=== PATIENT | female | born 1945 | race Caucasian/White ===

== ENCOUNTER 2019-04-18 16:07 | Emergency (ER) | payer MEDICARE, OTHER, SELFPAY ==
[2019-04-18 16:08] VITALS: BP 160/83; PULSE 81; RESP 18; TEMP 36.6; O2SAT 96; BMI 31.6
--- NOTE | 2019-04-18 17:16 | ED.DCSUM_ITS ---
History of Present Illness Chief Complaint: Lower Extremity Injury Informant: Patient Onset: Today Context: Sudden Onset Timing: Continuous Current Severity: Mild Maximum Severity: Moderate Narrative: Patient is a 73-year-old female presenting with sudden onset of left-sided hip pain. Patient states she went for her normal walk this morning and after she was sitting down she went to stand up again and started having left hip pain. This occurred while she was at work. She states it radiates down her leg slightly. Pain is worse with movement or walking. Pain resolves with staying still. Patient denies any bladder or bowel incontinence. She denies any perineal numbness. She denies any history of IV drug use. She notes she does have a history of breast cancer stage 0 treated with resection but denies any other history of cancer. She denies any fever or chills. She is taken Tylenol with no significant relief. She denies any other complaints at this time. Patient states she came in because she is planning on flying to [place] tomorrow to visit her sister and wanted to make sure there is nothing really wrong with her. Past Medical History - Allergies and Home Meds Allergies/Adverse Reactions: Allergies No Known Allergies Allergy (Verified 04/18/19 16:11) Primary Care Physician: Justyn Penny MD [Primary Care Provider] - Prior records reviewed: Yes Past Medical History: - - Hypertension Smoking Status: Never smoker Review of Systems Musculoskeletal: Reports: Extremity Pain - lEft hip. Denies: Back pain Physical Exam Vital Signs/Narrative: Vital Signs Temp Pulse Resp BP Pulse Ox 04/18/19 16:08 97.8 F 81 18 160/83 H 96 Inital Vital Signs reviewed: Yes General: Well nourished, Well developed, No Acute Distress Head: Normocephalic, Atraumatic Eyes: Perrl, EOMI ENT: Moist mucous membranes, No rhinorrhea Neck: Supple, Nontender Cardiovascular: Regular rate, Regular rhythm, No murmurs, - - 2+ DP pulses bilaterally Respiratory: No distress, CTA bilaterally, Chest nontender Abdomen: Soft, Nontender, Nondistended, Normal bowel sounds Back: Nontender, Normal Inspection. Negative for: CVA tenderness, Spinal tenderness Extremities: Nontender, No edema, - - Tenderness is over the left hip bursa however is not reproducible on palpation. She has slight pain with hip flexion and movement. Normal logroll of the lower extremities. Normal straight leg test bilaterally Skin: Normal color, No rash Neurological: Alert, Oriented x3, Cranial nerves II-XII grossly intact, Normal Strength, Normal Sensation Psychological: Normal affect, Normal Mood Diagnostic/Tx/Re-eval - Medical Decision Making She is evaluated for atraumatic left hip pain. I suspect his bursitis. Patient states she does walk daily. Patient will be given a dose of Motrin in the emergency room. She is instructed to take ibuprofen as needed for the pain. She will be given a prescription for prednisone burst to take if her symptoms worsen. Patient is agreeable to this plan. She does not have findings consistent with cauda equina syndrome. Normal neurologic exam. Patient is counseled on signs and symptoms requiring return to the emergency room. Patient verbalizes agreement and understand this plan. Patient discharged home in stable and improved condition. ED Disposition - Plan for ED Patient: Disposition: Home or Assisted Living Diagnosis: Hip bursitis, left Instructions: Bursitis Prescriptions: Prednisone 40 mg PO DAILY #10 tab Prescription Printed Referrals: Justyn Penny MD [Primary Care Provider] - Additional Instructions: Take [id number] ibuprofen/Motrin as the bottle instructions. Start taking the prednisone prescription if your symptoms are not improving or worsening. Follow-up with your primary care doctor as needed. Return to the emergency room if you have any worsening or new concerns.
[2019-04-18] MEDS: Ibuprofen 200 MG Tablet 400 MG PO (17:39)
== END 2019-04-18 17:42 | disposition home or self-care (01) ==
PROVIDERS: Emergency Provider Emergency Medicine; Family Provider Internal Medicine; PCP Internal Medicine
DX: M70.72 Other bursitis of hip, left hip (principal); I10 Essential (primary) hypertension; Z85.3 Personal history of malignant neoplasm of breast
CPT/HCPCS: 99283

== ENCOUNTER 2025-01-14 08:39 | Observation (INO) | payer MEDICARE, OTHER, SELFPAY ==
[2025-01-14] VITALS (8 sets, daily range): BP systolic 140–179; BP diastolic 64–93; PULSE 69–89; RESP 14–18; TEMP 36.7–37.2; O2SAT 95–100; BMI 33.3; BMI 34.0
--- NOTE | 2025-01-14 09:00 | EKG12_ITS ---
Test Reason : CHEST PAIN Blood Pressure : */* mmHG Vent. Rate : 75 BPM Atrial Rate : 75 BPM P-R Int : 134 ms QRS Dur : 94 ms QT Int : 380 ms P-R-T Axes : 82 -7 52 degrees QTcB Int : 424 ms Normal sinus rhythm Normal ECG Confirmed by SERA BRITO, LIZZY ([id number]), commercial production editor SHAKEEL KRISHNA ([id number]) on 01/15/2025 11:05:05 AM Referred By: Confirmed By: LIZZY ZAMORA MD
--- NOTE | 2025-01-14 09:01 | EDS_ITS ---
HPI History of Present Illness Chief Complaint: Neuro S/Sx Detail of Chief Complaint: Disequilibrium Informant: patient Narrative Narrative: Patient presents the emergency department complaining of feeling off balance that started yesterday morning when she woke up at 7 AM. She felt off balance like she was bouncing off nuñez and having to hold onto things. She denies vertigo symptoms or dizziness. She denies headache. She denies chest pain. Patient denies numbness or tingling or weakness to the extremities. She denies slurred speech or difficulty with vision. She has had intermittent episodes since yesterday. Today with some nausea and had 3 watery stools. She denies fevers or chills or sweats. She denies dysuria. She denies chest pain. She does have history of A-fib that was corrected with a mini maze procedure years ago. [facility] Medical History (Updated 01/14/25 @ 11:[address] Celina Rae, DO) History of atrial fibrillation Incontinence Hypertension Home Medications ?Medication ?Instructions ?Recorded ?Last Taken ?Type calcium 600 mg (as 1 ea PO DAILY 02/04/15 Unkno wn History carbonate)-vitamin D3 20 mcg (800 unit) tablet ngaecxcu-btbl-uvsb 8 mg-folic 400 1 ea PO DAILY Unknown History mcg-K 50 mcg-lutein 300 mcg tablet (Centrum Silver Women) diltiazem HCl 240 mg 240 mg PO DAILY 01/14/25 Unk nown History capsule,extended release 24 hr lisinopril 20 mg tablet 20 mg PO DAILY 01/14/25 Unkn own History pravastatin 20 mg tablet 20 mg PO QHS 01/14/25 Unknow n History Allergy/AdvReac Type Severity Reaction Status Date / Time No Known Allergies Allergy Verified 01/14/25 08:42 Family History Other COPD (chronic obstructive pulmonary disease) Hypertension Surgical History (Updated 01/14/25 @ 08:50 by Zainab Carias) Hx of hysterectomy Hx of breast biopsy Hx of cholecystectomy Hx of tonsillectomy Hx of splenectomy Hx of heart surgery Social History Smoking Status: Never smoker ROS ROS ED Review of Systems ROS Unobtainable: other Constitutional Constitutional ED: Reports lethargy; Denies chills, fever(s), sweats or weight loss Eyes Eyes: Denies blurry vision, change in vision or diplopia ENT ENT ED: Denies rhinorrhea or sore throat Cardiovascular Cardiovascular: Denies chest pain, orthopnea or racing heartbeat Respiratory/Chest Respiratory/Chest: Denies cough, dyspnea, dyspnea on exertion, orthopnea or sputum Gastrointestinal Gastrointestinal: Reports diarrhea and nausea; Denies abdominal pain or vomiting Genitourinary Genitourinary ED: Denies dysuria, hematuria or urinary frequency Musculoskeletal Musculoskeletal: Denies arthralgias, back pain, myalgias or neck pain Integumentary Denies abscess, Abrasions or rash Neurologic Neurologic: Reports other Details: Difficulty with balance ; Denies headache(s) or weakness Psychiatric Psychiatric: Denies anxiety, depression or suicidal thoughts Endocrine Endocrinology: Denies polydipsia, polyphagia or polyuria Hematologic/Lymphatic Hematologic/Lymphatic: Denies easy bleeding, easy bruising or lymphadenopathy Allergic/Immunologic Allergic/Immunologic ED: Denies mouth swelling, tongue swelling or urticaria EXAM Physical Exam Const Vital Signs: 01/14/25 08:40 01/14/25 10:22 01/14/25 10:55 Temperature 98.1 F Temperature Source Oral Pulse Rate 89 80 Pulse Rate [Lying] 80 Pulse Rate [Sitting (for 1 minute prior to obtaining)] 81 Pulse Rate [Standing (for 1 minute prior to obtaining)] 84 Respiratory Rate 18 14 Blood Pressure 166/77 H 163/75 H Blood Pressure [Lying] 163/75 H Blood Pressure [Sitting (for 1 minute prior to obtaining)] 174/84 H Blood Pressure [Standing (for 1 minute prior to obtaining)] 179/93 H Blood Pressure Mean 106 104 Blood Pressure Mean [Lying] 104 Blood Pressure Mean [Sitting (for 1 minute prior to obtaining)] 114 Blood Pressure Mean [Standing (for 1 minute prior to obtaining)] 121 Pulse Ox 100 98 Oxygen Delivery Method Room Air Room Air Positive well nourished and well developed General Appearance ED: well developed and NAD HEENT Reports TM's clear and moist mucous membranes normocephalic and atraumatic; Negative for trauma or tenderness Tympanic Membrane ED: Yes TM's clear Eyes PERRL and EOMs intact bilaterally General Eye ED: Negative for pale conjunctiva or scleral icterus Neck no lymphadenopathy, supple and no JVD General: Negative for tenderness Chest Wall inspection of chest normal and palpation of chest normal Chest: Negative for tenderness Resp normal respiratory effort and clear to auscultation bilaterally Effort and Inspection: Negative for respiratory distress or pain with movement Auscultation: Negative for rhonchi, wheezes or diminished lung sounds Cardio regular rate, regular rhythm, S1 normal heart sound, S2 normal heart sound and no murmurs Peripheral Pulses: pulses 2+ throughout GI normal to inspection, nondistended, normoactive bowel sounds, soft to palpation, non-tender, non-distended and no masses Back/Spine no CVA tenderness and no thoracic nor lumbar tenderness Extremity normal to inspection General Extremety ED: Negative for edema General Extremity: Negative for edema Neuro oriented x3, CN's II-XII intact bilaterally, no sensory deficits noted and gait normal Neuro Narrative: NIH stroke scale 0. No focal deficits. No facial droop. Finger-nose and heel nelson testing within normal limits. Negative Romberg. Sensorium / Orientation: awake, alert, oriented to person, oriented to place and oriented to time Motor Exam: strength 5/5 throughout and strength abnormal Psych mental status grossly normal Skin no rashes or lesions noted and no wounds MDM MDM MDM Narrative Medical decision making narrative: Patient presents with difficulty with balance. Exam here without focal deficit. Concern for possibility of posterior circulation stroke. EKG obtained arrival shows sinus rhythm with rate of 75 bpm with no acute ST segment changes. CBC with differential count of 8.1 with hemoglobin 14.7 and platelet count of 364. Chemistries unremarkable. Troponin less than 6. Urinalysis was normal. Orthostatic vital signs were negative. CT scan of the brain as well as CTA of head and neck were unremarkable. At this point will discuss case with hospitalist evaluate for admission for rule out of stroke with posterior c irculations and feel she will require MRI to evaluate further. She is not a thrombolytic candidate. Lab Data Attestation: I reviewed the patient's lab results. Labs: Laboratory Results - last 24 hr 01/14/25 01/14/25 09:40 10:10 WBC 8.1 RBC 4.83 Hgb 14.7 Hct 44.1 MCV 91.3 MCH 30.4 MCHC 33.3 RDW Std Deviation 48.6 H RDW Coeff of Leda 14.4 Plt Count 364 MPV 10.5 Immature Gran % (Auto) 0.100 Neut % (Auto) 76.1 H Lymph % (Auto) 16.4 L [place] % (Auto) 6.7 Eos % (Auto) 0.1 Baso % (Auto) 0.6 Absolute Neuts (auto) 6.2 Absolute Lymphs (auto) 1.33 Nucleated RBC % 0 Sodium 142 Potassium 3.8 Chloride 106 Carbon Dioxide 24.6 Anion Gap 11 BUN 15 Creatinine 0.92 Estim Creat Clear Calc 56.14 Est GFR (MDRD) Non-Af 64 BUN/Creatinine Ratio 16.3 Glucose 112 H Calcium 10.0 Troponin T High Sens < 6 Urine Color Yellow Urine Clarity Sl. Cloudy Urine pH 6.5 Ur Specific [place] 1.015 Urine Protein 15 H Urine Glucose (UA) Normal Urine Ketones Negative Urine Occult Blood 25 H Urine Nitrite Negative Urine Bilirubin Negative Urine Urobilinogen Normal Ur Leukocyte Esterase 25 H Urine RBC 0-5 SEEN Urine WBC 0-5 SEEN Ur Squamous Epith Cells 0-5 SEEN Urine Bacteria 0 SEEN Urine Mucus 0 SEEN Radiography Diagnostic Testing: Clinical Impression(s) from Imaging Studies Head/Neck CTA 01/14/25 10:09 IMPRESSION: CTA of the head and neck is within normal limits. [facility] Initial EKG: Attestation: I personally reviewed and interpreted this EKG as follows: Comments: Sinus rhythm with rate 75 bpm with no acute ST segment change Discharge Plan Dx/Rx/DC Orders Clinical Impression: Disequilibrium, Hypertension, History of atrial fibrillation Disposition Disposition: Acute Care Hospital [facility]
[2025-01-14 09:58] LABS: Absolute Lymphocyte Count 1.33 X10^3/uL (0.83-4.51); Absolute Neutrophil Count 6.2 X10^3/uL (2.0-7.7); Basophil# 0.05 X10^3/uL; Basophil% 0.6 % (0-1); Eosinophil# 0.01 X10^3/uL; Eosinophils% 0.1 % (0-5); Hematocrit 44.1 % (37-47); Hemoglobin 14.7 g/dL (12.0-15.0); Lymphocyte # 1.33 X10^3/ul (0.83-4.51); Lymphocyte % 16.4 % (19-41); Mean Corp Hgb Conc 33.3 g/dL (32-36); Mean Corpuscular Hgb 30.4 pg (27.0-32.0); Mean Corpuscular Volume 91.3 fL (81-99); Mean Platelet Vol. 10.5 fl (6.2-12.0); Monocyte# 0.54 X10^3/uL; Monocyte% 6.7 % (0-10); NRBC Flagged by Analyzer 0 % (0-5); Neutrophil # 6.18 X10^3/uL (2.7-7.7); Neutrophil % 76.1 % (47-70); Platelet Count 364 K/mm3 (150-450); RBC Distribution Width CV 14.4 % (11.6-14.6); RBC Distribution Width SD 48.6 fl (35.1-43.9); Red Blood Count 4.83 M/mm3 (4.2-5.4); White Blood Count 8.1 K/mm3 (4.4-11.0)
--- NOTE | 2025-01-14 10:09 | CT_ITS ---
PROCEDURE: CTA HEAD AND NECK W/ CONTRAST 01/14/2025 REASON FOR EXAM: DISEQUILIBRIUM TECHNIQUE: CTA HEAD AND NECK W/ CONTRAST Multiplanar Sagittal and Coronal images were obtained. CONTRAST: 100 cc Isovue 370 One or more dose reduction techniques were used (e.g., Automated exposure control, adjustment of the mA and/or kV according to patient size, use of iterative reconstruction technique). RADIATION DOSE SUMMARY: DLP: 1492.09 mGycm COMPARISON: None FINDINGS: Aortic Arch: Intact Brachiocephalic and Subclavians: Patent RIGHT Carotid: Right CCA: Patent Right ICA: Patent Maximum stenosis (NASCET): 0 % Right ECA: Patent LEFT Carotid: Left CCA: Patent Left ICA: Patent Maximum stenosis (NASCET): 0 % Left ECA: Patent Vertebrals: Patent RIGHT Vertebral: Patent LEFT Vertebral: Patent Anatomy: Intact Aneurysm or avm: None Anterior cerebral arteries: Patent Middle cerebral arteries: Patent Basilar artery: Patent Posterior cerebral arteries: Patent Other major branches of the posterior circulation: Patent Major venous structures: Patent Other findings: Neck: Unremarkable lungs: Clear bones: There is no acute bony abnormality. The thyroid appears heterogeneous with small bilateral cysts visible. CT/CTA Head AND Neck W/ Contrast IMPRESSION: CTA of the head and neck is within normal limits. Reading Location: [facility]
[2025-01-14 10:19] LABS: Anion Gap 11 (5-15); BUN 15 mg/dL (4-19); BUN/Creat Ratio 16.3 RATIO (10-20); Carbon Dioxide 24.6 mmol/L (21.0-32.0); Chloride 106 mmol/L (98-108); Creatinine, Serum 0.92 mg/dL (0.70-1.20); EST Glomerular Filtration Rate 64 (>60); Estimated Creatinine Clearance 56.14 ml/min (50-250); Glucose 112 mg/dL (70-99); Potassium 3.8 mmol/L (3.3-5.1); Sodium Level 142 mmol/L (133-145)
[2025-01-14 10:22] LABS: Troponin T High Sensitivity < 6 ng/L (<=14)
[2025-01-14] MEDS: 0.9% Normal Saline (1000mL) 1,000 ML 150 ML IV (10:22)
[2025-01-14 10:24] LABS: Bacteria 0 SEEN /hpf (None Seen); Mucous, Urine 0 SEEN /hpf (<or=2+)
[2025-01-14 10:27] LABS: Color, Urine Yellow (Yellow); Glucose, Dipstick Normal (Normal); Ketone-Dipstick Negative (Negative); Leukocyte Esterase-Dipstick 25 /ul (Negative); Nitrite-Dipstick Negative (Negative); Occult Blood-Urine 25 /ul (Negative); Protein-Dipstick 15 mg/dl (Negative); Specific Gravity, Urine 1.015 (1.002-1.030); Urine Bilirubin Dipstick Negative (Negative); Urine Clarity Sl. Cloudy (Clear); Urine Urobilinogen Normal (Normal); Urine pH 6.5 (5.0 - 8.0)
[2025-01-14 10:48] LABS: Squamous Epithelial Cells - UA 0-5 SEEN /hpf (5-10)
[2025-01-14 10:49] LABS: Red Blood Cells-Urine 0-5 SEEN /hpf (0-5); White Blood Cells 0-5 SEEN /hpf (0-5)
--- NOTE | 2025-01-14 11:18 | PCM.HP.STD ---
HPI - General General Date of Admission: 01/14/25 Date of Service: 01/14/25 Chief Complaint: Strokelike symptoms HPI Narrative JONA SMITH, is a 79 F who presented to [facility] ED on 01/14/2025 with strokelike symptoms. Medical history is significant for A-fib corrected with a mini maze procedure with left atrial appendage clipping back in 2006, hypertension and hyperlipidemia. She lives at home with her and has good functional status at baseline. She states that she began feeling off balance starting yesterday morning when she woke up. She was having to hold onto things to ambulate. However, she denies any dizziness or vertigo symptoms. Denies any chest pain or shortness of breath. Denies any slurred speech, difficulty with vision or any weakness or numbness/tingling in her extremities. The symptoms continued today so she came in for further evaluation. In the ED she was hypertensive to the 160s systolic, was otherwise hemodynamically stable on room air. CBC and BMP were benign. Troponins negative x 2. UA unremarkable. CTA head/neck was normal. Given concern for posterior stroke, hospitalist was contacted for admission. I saw the patient at bedside in the ED, was present. Patient was sitting back comfortably in bed, conversing normally, in no acute distress. She denied any symptoms at rest. Notes that she has never had symptoms like this before. No other acute concerns currently. Will be admitted for further management. [facility] Medical History (Updated 01/14/25 @ 11:[address] Celina Rae, DO) History of atrial fibrillation Incontinence Hypertension Home Medications ?Medication ?Instructions ?Recorded ?Last Taken ?Type calcium 600 mg (as 1 ea PO DAILY 02/04/15 01/14/25 History carbonate)-vitamin D3 20 mcg (800 unit) tablet yoekcioc-qura-mela 8 mg-folic 400 1 ea PO DAILY 02/04/15 01/14/25 History mcg-K 50 mcg-lutein 300 mcg tablet (Centrum Silver Women) diltiazem HCl 240 mg 240 mg PO DAILY 01/14/25 01/14/25 History capsule,extended release 24 hr lisinopril 20 mg tablet 20 mg PO DAILY 01/14/25 01/14/25 History pravastatin 20 mg tablet 20 mg PO QHS 01/14/25 01/13/25 History Allergy/AdvReac Type Severity Reaction Status Date / Time No Known Allergies Allergy Verified 01/14/25 08:42 Family History Other COPD (chronic obstructive pulmonary disease) Hypertension Surgical History (Updated 01/14/25 @ 08:50 by Zainab Carias) Hx of hysterectomy Hx of breast biopsy Hx of cholecystectomy Hx of tonsillectomy Hx of splenectomy Hx of heart surgery Social History Smoking Status: Never smoker ROS Constitutional Constitutional: Denies chills, fatigue, fever(s) or weakness Eyes Eyes: Denies blurry vision, change in vision or double vision Cardiovascular Cardiovascular: Denies chest pain, edema, lightheadedness or palpitations Respiratory/Chest Respiratory/Chest: Denies shortness of breath at rest Gastrointestinal Gastrointestinal: Denies abdominal pain, constipation or diarrhea Genitourinary Genitourinary: Denies dysuria Musculoskeletal Musculoskeletal: Denies arthralgias or myalgias Neurologic Neurologic: Reports abnormal gait and disequilibrium; Denies abnormal speech, confusion, dizziness, focal weakness, headache(s), numbness, paresthesias, tingling or tremor(s) Vital Signs Vital Signs Vital Signs: 01/14/25 08:40 01/14/25 10:22 01/14/25 10:55 Temperature 98.1 F Temperature Source Oral Pulse Rate 89 80 Pulse Rate [Lying] 80 Pulse Rate [Sitting (for 1 minute prior to obtaining)] 81 Pulse Rate [Standing (for 1 minute prior to obtaining)] 84 Respiratory Rate 18 14 Blood Pressure 166/77 H 163/75 H Blood Pressure [Lying] 163/75 H Blood Pressure [Sitting (for 1 minute prior to obtaining)] 174/84 H Blood Pressure [Standing (for 1 minute prior to obtaining)] 179/93 H Blood Pressure Mean 106 104 Blood Pressure Mean [Lying] 104 Blood Pressure Mean [Sitting (for 1 minute prior to obtaining)] 114 Blood Pressure Mean [Standing (for 1 minute prior to obtaining)] 121 Pulse Ox 100 98 Oxygen Delivery Method Room Air Room Air Weight Weight: 90.9 kg Body Mass Index (BMI) 33.3 Physical Exam Const alert, oriented x3 and no apparent distress Constitutional Narrative: Elderly female, class I obesity, mildly fatigued appearing but otherwise sitting back comfortably in bed, conversing normally, in no acute distress. General Appearance: cooperative and comfortable HEENT normocephalic, head/scalp atraumatic, hearing grossly normal bilaterally, nasal mucous membranes and turbinates normal and moist oral mucous membranes Eyes PERRL, EOMs intact bilaterally and conjunctivae normal Neck full ROM Chest inspection of chest normal Resp normal respiratory effort, normal air movement, no use of accessory muscles and clear to auscultation bilaterally Cardio regular rate, regular rhythm, no murmurs and peripheral pulses 2+ throughout GI normal to inspection, nondistended, normoactive bowel sounds, soft to palpation, non-tender and non-distended Back/Spine normal ROM Extremity normal to inspection, full ROM and no pedal edema Skin no rashes or lesions noted Neuro oriented x3, CN's II-XII intact bilaterally, moves all extremities and no focal motor deficits Coordination / Balance: [id number]-no-[id number] test normal and [id number]-updl test normal Speech: speech normal Motor Exam: strength 5/5 throughout Psych mental status grossly normal Results Lab / Micro Data 01/14/25 09:40 01/14/25 09:40 Labs: Laboratory Results - last 24 hr 01/14/25 09:40: WBC 8.1, RBC 4.83, Hgb 14.7, Hct 44.1, MCV 91.3, MCH 30.4, MCHC 33.3, RDW Std Deviation 48.6 H, RDW Coeff of Leda 14.4, Plt Count 364, MPV 10.5, Immature Gran % (Auto) 0.100, Neut % (Auto) 76.1 H, Lymph % (Auto) 16.4 L, [place] % (Auto) 6.7, Eos % (Auto) 0.1, Baso % (Auto) 0.6, Absolute Neuts (auto) 6.2, Absolute Lymphs (auto) 1.33, Nucleated RBC % 0, Sodium 142, Potassium 3.8, Chloride 106, Carbon Dioxide 24.6, Anion Gap 11, BUN 15, Creatinine 0.92, Estim Creat Clear Calc 56.14, Est GFR (MDRD) Non-Af 64, BUN/Creatinine Ratio 16.3, Glucose 112 H, Calcium 10.0, Troponin T High Sens < 6 01/14/25 10:10: Urine Color Yellow, Urine Clarity Sl. Cloudy, Urine pH 6.5, Ur Specific [place] 1.015, Urine Protein 15 H, Urine Glucose (UA) Normal, Urine Ketones Negative, Urine Occult Blood 25 H, Urine Nitrite Negative, Urine Bilirubin Negative, Urine Urobilinogen Normal, Ur Leukocyte Esterase 25 H, Urine RBC 0-5 SEEN, Urine WBC 0-5 SEEN, Ur Squamous Epith Cells 0-5 SEEN, Urine Bacteria 0 SEEN, Urine Mucus 0 SEEN Imaging Radiology Impression Head/Neck CTA 01/14/25 10:09 IMPRESSION: CTA of the head and neck is within normal limits. Reading [facility] Assessment & Plan Assessment/Plan (1) Disequilibrium: PLAN: Plan Patient is a 79-year-old female who presented to [facility] ED on 01/14/2025 with disequilibrium and difficulty with ambulation. 1. Disequilibrium and difficulty with ambulation ? Admit under observation status to PCU. Neurology consulted. Presented with disequilibrium and difficulty with ambulation for 1 to 2 days. Reports no prior history of this. CTA head/neck unremarkable. Orders placed per stroke protocol order set. MRI brain and echo ordered. Lipid panel, A1c and TSH ordered. PT/OT/case management consulted. Will start baby aspirin and high intensity statin for now. 2. History of A-fib s/p Maze procedure and CHENTE clipping, hypertension, hyperlipidemia ? History of Maze procedure and CHENTE clipping back in 2006. Follows with outpatient cardiology and reports no recurrence of A-fib since then. Holding home diltiazem and lisinopril for permissive hypertension. Treating with high intensity statin as above. 3. Class I obesity ? BMI 34 on admit. Complicates hospital course, care and prognosis. DVT prophylaxis: SCDs CODE STATUS: Full code, verified Expected disposition: Home, 1 to 2 days Total clinical time spent by myself addressing the patient's medical issues, reviewing all the data, and collaborating with patient's care team: 55 minutes. Charges/Coding Visit Charges Inpatient E&M: 48854 Init Hosp L2
--- NOTE | 2025-01-14 11:21 | ECHOD_ITS ---
Reason For Study Reason For Study: TIA/CVA Procedure This was a 2D Doppler, Color Flow transthoracic echocardiogram. Exam performed portable in patient room. Left Ventricle Normal LV size. Left ventricular systolic function is normal. The left ventricular ejection fraction is 60 %. No regional wall motion abnormalities noted. Right Ventricle Normal RV size. Normal systolic function. Atria The left atrium is mildly enlarged. Normal right atrium. Mitral Valve Normal mitral valve. Tricuspid Valve Normal tricuspid valve. Mild (1+) tricuspid valve insufficiency. Pulmonary artery systolic pressure is 35 mmHg. Aortic Valve Trisinus/trileaflet aortic valve. Pulmonic Valve Normal pulmonic valve. Great Vessels Normal aortic root. The pulmonary artery is normal size. Inferior vena cava collapse with respiration. Pericardium/Pleural No pericardial effusion. MMode/2D Measurements & Calculations LVIDd: 4.6 cm IVSd: 1.0 cm Ao root diam: 3.2 cm LVIDs: 3.1 cm LVPWd: 1.0 cm RVDd: 4.0 cm FS: 32.4 % LAV(MOD-bp): 69.6 ml LA A4 area: 23.2 cm2 LA dimension(2D): 5.0 cm LAV(MOD-bp) Indexed: 35.2 ml/m2 LAV(MOD-sp2): 60.5 ml LAV(MOD-sp4): 76.8 ml TAPSE: 1.9 cm RA A4 area: 19.2 cm2 Time Measurements MV dec time: 0.16 sec Doppler Measurements & Calculations MV E max charbel: 90.6 cm/sec Lat Peak E' Charbel: 18.4 cm/sec Med Peak E' Charbel: 9.3 cm/sec MV A max charbel: 61.6 cm/sec E/E' lat: 4.9 E/E' med: 9.8 MV E/A: 1.5 MV V2 max: 104.8 cm/sec MV P1/2t max charbel: 98.4 cm/sec Ao V2 max: 148.8 cm/sec MV max P.4 mmHg MV P1/2t: 50.3 msec Ao max P.9 mmHg MV V2 mean: 56.2 cm/sec MV dec slope: 572.3 cm/sec2 Ao V2 mean: 102.4 cm/sec MV mean P.5 mmHg Ao mean P.8 mmHg MV V2 VTI: 27.7 cm MVA(P1/2t): 4.4 cm2 Ao V2 VTI: 35.5 cm AV (velocity ratio): 0.67 LV V1 max: 94.7 cm/sec PA V2 max: 86.7 cm/sec TR max charbel: 281.8 cm/sec LV V1 max P.6 mmHg TR max P.8 mmHg LV V1 mean P.1 mmHg LV V1 mean: 67.6 cm/sec LV V1 VTI: 23.6 cm ECHO/Echo Complete Interpretation Summary Normal LV size. Left ventricular systolic function is normal. The left ventricular ejection fraction is 60 %. The left atrium is mildly enlarged. Ordering Physician: Nehemias John Performed By: Marcio Adam RCS
[2025-01-14 12:17] LABS: Troponin T High Sens 2 HR < 6 ng/L (<=14)
--- NOTE | 2025-01-14 12:24 | MRI_ITS ---
EXAM: BRAIN WITHOUT CONTRAST CLINICAL HISTORY: CVA R/O COMPARISON: January 14, 2025 CT. TECHNIQUE: Multiplanar, multisequence MR images of the brain were obtained without gadolinium contrast material. FINDINGS: No intracranial hemorrhage, mass, mass effect, midline shift or pathologic extra- axial fluid collection. No hydrocephalus. There is abnormal increased T2 and FLAIR signal in the deep white matter with moderate chronic ischemic change, with the largest lesion in the left periventricular region measuring 1.2 by 0.7 cm, FLAIR image 13/. No areas of restricted diffusion to suggest acute ischemia or infarction. No gradient signal blooming artifacts are identified. No cerebellar tonsillar ectopia. No sellar/suprasellar signal abnormalities. The ocular globes and intraorbital soft tissues are symmetrically unremarkable. There is minimal mucosal thickening in the right maxillary sinus and sphenoid sinus. MRI/Brain without Contrast IMPRESSION: There is abnormal increased T2 and FLAIR signal in the deep white matter with m oderate chronic ischemic change, with the largest lesion in the left periventricular region measuring 1.2 by 0.7 cm, FLAIR image 13/. No areas of restricted diffusion to suggest acute ischemia or infarction. There is minimal mucosal thickening in the right maxillary sinus and sphenoid s inus. Reading Location: [facility]
[2025-01-14 12:51] LABS: Hemoglobin A1c 5.9 % (<=5.6)
[2025-01-14 14:21] LABS: Troponin T High Sens 4 HR < 6 ng/L (<=14)
[2025-01-14] MEDS: Atorvastatin Calcium 40 MG Tablet PO (21:38)
[2025-01-14] MEDS: 0.9% Saline Lock 10 ML Syringe IV (21:38)
[2025-01-15 01:59] VITALS: BMI 34.0
[2025-01-15 04:50] VITALS: BP 163/74; PULSE 77; RESP 18; TEMP 36.7; O2SAT 96
[2025-01-15 07:02] LABS: Hematocrit 41.9 % (37-47); Mean Corp Hgb Conc 33.4 g/dL (32-36); Mean Corpuscular Hgb 30.3 pg (27.0-32.0); Mean Corpuscular Volume 90.7 fL (81-99); Mean Platelet Vol. 10.6 fl (6.2-12.0); Platelet Count 330 K/mm3 (150-450); RBC Distribution Width CV 14.7 % (11.6-14.6); RBC Distribution Width SD 49.1 fl (35.1-43.9); Red Blood Count 4.62 M/mm3 (4.2-5.4); White Blood Count 7.3 K/mm3 (4.4-11.0)
[2025-01-15 07:34] LABS: Anion Gap 9 (5-15); BUN 11 mg/dL (4-19); BUN/Creat Ratio 13.8 RATIO (10-20); Calcium,Total 9.1 mg/dL (7.6-11.0); Carbon Dioxide 24.3 mmol/L (21.0-32.0); Chloride 108 mmol/L (98-108); Cholesterol 161 mg/dL (<=200); Creatinine, Serum 0.83 mg/dL (0.70-1.20); EST Glomerular Filtration Rate 72 (>60); Estimated Creatinine Clearance 62.89 ml/min (50-250); Glucose 97 mg/dL (70-99); High Density Lipoprotein 67 mg/dL; Low Density Lipoprotein Calc. 84 mg/dL; Potassium 3.9 mmol/L (3.3-5.1); Sodium Level 142 mmol/L (133-145); Triglycerides 49 mg/dL; Very Low Density Lipoprotein 10 mg/dL (5-40); cholesterol:hdl ratio screen 2.39
[2025-01-15] MEDS: Aspirin 81 MG TAB.CHEW PO (09:48)
[2025-01-15 09:50] VITALS: BP 148/77; PULSE 78; RESP 14; TEMP 36.4; O2SAT 100
[2025-01-15] MEDS: Calcium Carb/Vitamin D 1 TABLET Tablet PO (10:49)
--- NOTE | 2025-01-15 11:36 | CASEMGMT ---
Met with patient to complete HUBER form. HUBER form and its content were verbally explained and patient's questions were answered to the best of my ability.? Patient voiced understanding and signed HUBER form.? Patient provided a copy of signed HUBER form and original placed in patient's chart.? Patient had no further questions. Marilyn Bryant, Discharge Planning Asst
--- NOTE | 2025-01-15 11:45 | NEURO.CONS ---
Assessment and Plan: Neuro Assessment/Plan JONA SMITH is a 79 F with a past medical history of afib s/p mini-maze, HTN, HLD, being evaluated by Teleneurology for dysequilibrium. Based on description of symptoms (paroysmal and positional) and the duration, unlikely neurovascularly related and more peripheral in nature. Exam unremarkable. Diagnosis: BPPV No further workup PT with Homa maneuver if still symptomatic I personally attended this patient and spent a total time of 45minutes evaluating this patient including clinical assessment, review of chart, medical history imaging, and determining appropriate treatment and workup. HPI Consult Data Date of Consult: 01/15/25 HPI Narrative HPI Narrative: JONA SMITH, is a 79 F who presented to [facility] ED on 01/14/2025 with strokelike symptoms. Medical history is significant for A-fib corrected with a mini maze procedure with left atrial appendage clipping back in 2006, hypertension and hyperlipidemia. She lives at home with her and has good functional status at baseline. She states that she began feeling off balance starting yesterday morning when she woke up. She was having to hold onto things to ambulate. However, she denies any dizziness or vertigo symptoms. Denies any chest pain or shortness of breath. Denies any slurred speech, difficulty with vision or any weakness or numbness/tingling in her extremities. The symptoms continued today so she came in for further evaluation. In the ED she was hypertensive to the 160s systolic, was otherwise hemodynamically stable on room air. CBC and BMP were benign. Troponins negative x 2. UA unremarkable. CTA head/neck was normal. Given concern for posterior stroke, hospitalist was contacted for admission. I saw the patient at bedside in the ED, was present. Patient was sitting back comfortably in bed, conversing normally, in no acute distress. She denied any symptoms at rest. Notes that she has never had symptoms like this before. No other acute concerns currently. Will be admitted for further management. Neurologic History Currently improved, did not have vertigo but had unsteadiness on his feet and wooziness.Woke up Tuesday morning and was unsteady and woozy. That continued intermittently Tuesday and then continued Tuesday. BP Tuesday was in 190s at home. Never had this happen before. No numbness tingling, weakness, no difficulty with vision. No headache. The woozy feeling is only when she is moving, but no issues with sitting. This AM when walking around, felt better walking. Not on blood thinners, never had stroke before. No changes to meds, diet, exercise. Walks a lot at baseline. Usual BP 130-140/80s, checks it daily at home. Sometimes it will be 150s but never as high as 190s. Neurologic Exam -? General: Laying comfortably in bed; in no acute distress. -? HENT: Normal oropharynx and mucosa. Normal external appearance of ears and nose. Exophthalmos. -? Neck: Supple, no pain or tenderness -? CV:? No peripheral edema. -? Pulmonary:? Normal respiratory effort. -? Ext: No cyanosis, edema, or deformity -? Skin: No rash. Normal palpation of skin.? -? Musculoskeletal: full range of motion; no joint tenderness. Normal digits and nails by inspection. No clubbing. -? NEURO: -? Mental Status: The patient was alert and oriented to time, place, and person. Normal recent/remote memory, concentration, and general fund of knowledge. -? Language: speech is dysarthric,? Naming, repetition, fluency, and comprehension intact. -? Cranial Nerves: PERRL 3 mm/brisk. EOMI, visual christensen full, no facial asymmetry, facial sensation intact, hearing intact, tongue midline, no evidence of atrophy or fibrillations. Motor: normal bulk, tone, and strength throughout. No pronator drift or satelliting. Upper and lower extremities equal bilaterally. -? Detailed strength exam as performed by the nurse/WHITNEY and witnessed by the physician: R L SA 5 5 EE EF 5 5 WE WF Treasury Specialist 5 5 HF KE KF 5 5 DF 5 5 PF -? Tone: is normal and bulk is normal -? Sensation- Intact to light touch bilaterally -? Coordination: No dysmetria on [id number]-rafz-[id number], finger follow finger or [id number]. -? Gait- Gait initiation was normal. Narrow base with good heel strike and stride length was observed during ambulation. Turns were in stride. Patient was able to walk normally in tandem. Romberg was normal. [facility] Medical History (Updated 01/14/25 @ 11:[address] Celina Rae, DO) History of atrial fibrillation Incontinence Hypertension Home Medications ?Medication ?Instructions ?Recorded ?Last Taken ?Type calcium 600 mg (as 1 ea PO DAILY 02/04/15 01/14/25 History carbonate)-vitamin D3 20 mcg (800 unit) tablet ukudahen-ogxk-twth 8 mg-folic 400 1 ea PO DAILY 02/04/15 01/14/25 History mcg-K 50 mcg-lutein 300 mcg tablet (Centrum Silver Women) diltiazem HCl 240 mg 240 mg PO DAILY 01/14/25 01/14/25 History capsule,extended release 24 hr lisinopril 20 mg tablet 20 mg PO DAILY 01/14/25 01/14/25 History pravastatin 20 mg tablet 20 mg PO QHS 01/14/25 01/13/25 History Allergy/AdvReac Type Severity Reaction Status Date / Time No Known Allergies Allergy Verified 01/14/25 08:42 Family History Other COPD (chronic obstructive pulmonary disease) Hypertension Surgical History (Updated 01/14/25 @ 08:50 by Zainab Carias) Hx of hysterectomy Hx of breast biopsy Hx of cholecystectomy Hx of tonsillectomy Hx of splenectomy Hx of heart surgery Social History Smoking Status: Never smoker Vital Signs Vital Signs Vital Signs: 01/14/25 13:20 01/14/25 13:36 01/14/25 18:18 Temperature 98.9 F 98.2 F Temperature Source Oral Temporal Pulse Rate 69 77 Pulse Strength Respiratory Rate 16 17 Respiratory Effort Respiratory Depth Respiratory Pattern Blood Pressure 169/74 H 166/80 H Blood Pressure Mean 105 108 Blood Pressure Source Monitor Monitor Blood Pressure Position Semi-Fowlers Semi-Fowlers Blood Pressure Location Left Arm Right Arm Pulse Ox 97 98 95 Oxygen Delivery Method Room Air Room Air Room Air 01/14/25 21:29 01/14/25 21:30 01/15/25 01:55 Temperature 98.0 F Temperature Source Oral Pulse Rate 81 Pulse Strength Normal (2+) Respiratory Rate 16 Respiratory Effort Normal Non-Labored Respiratory Depth Normal Respiratory Pattern Normal Blood Pressure 140/64 H Blood Pressure Mean 89 Blood Pressure Source Monitor Blood Pressure Position Semi-Fowlers Blood Pressure Location Right Arm Pulse Ox 95 Oxygen Delivery Method Room Air Room Air 01/15/25 04:50 01/15/25 04:50 01/15/25 07:52 Temperature 98.1 F Temperature Source Oral Pulse Rate 77 Pulse Strength Respiratory Rate 18 Respiratory Effort Normal Non-Labored Respiratory Depth Normal Respiratory Pattern Normal Blood Pressure 163/74 H Blood Pressure Mean 103 Blood Pressure Source Monitor Blood Pressure Position Semi-Fowlers Blood Pressure Location Right Arm Pulse Ox 96 Oxygen Delivery Method Room Air Room Air Room Air 01/15/25 08:12 01/15/25 09:50 01/15/25 10:00 Temperature 97.6 F L Temperature Source Oral Pulse Rate 78 Pulse Strength Normal (2+) Respiratory Rate 14 Respiratory Effort Normal Non-Labored Respiratory Depth Normal Respiratory Pattern Normal Blood Pressure 148/77 H Blood Pressure Mean 100 Blood Pressure Source Monitor Blood Pressure Position Sitting Blood Pressure Location Right Arm Pulse Ox 100 Oxygen Delivery Method Room Air Room Air Weight Weight: 92.8 kg Body Mass Index (BMI) 34.0 EEG Results Procedure Details EEG Procedure Details: JONA SMITH is a 79 year old F with a past medical history of , who presents for evaluation of Electroencephalogram on DATE at TIME Lab / Micro Data 01/15/25 06:22 01/15/25 06:22 Labs: Laboratory Results - last 24 hr 01/14/25 09:40: Hemoglobin A1c 5.9 H, TSH 1.070 01/14/25 11:25: Troponin T Hi Sens 2 Hr < 6 01/14/25 13:25: Troponin T Hi Sens 4Hr < 6 01/15/25 06:22: WBC 7.3, RBC 4.62, Hgb 14.0, Hct 41.9, MCV 90.7, MCH 30.3, MCHC 33.4, RDW Std Deviation 49.1 H, RDW Coeff of Leda 14.7 H, Plt Count 330, MPV 10.6, Sodium 142, Potassium 3.9, Chloride 108, Carbon Dioxide 24.3, Anion Gap 9, BUN 11, Creatinine 0.83, Estim Creat Clear Calc 62.89, Est GFR (MDRD) Non-Af 72, BUN/Creatinine Ratio 13.8, Glucose 97, Calcium 9.1, Triglycerides 49, Cholesterol 161, LDL Cholesterol, Calc 84, VLDL Cholesterol 10, HDL Cholesterol 67, Cholesterol/HDL Ratio 2.39 Imaging Radiology Impression Echocardiogram 01/14/25 11:21 Interpretation Summary Normal LV size. Left ventricular systolic function is normal. The left ventricular ejection fraction is 60 %. The left atrium is mildly enlarged. Ordering Physician: Nehemias John Performed By: Marcio Adam RCS Brain MRI 01/14/25 12:24 IMPRESSION: There is abnormal increased T2 and FLAIR signal in the deep white matter with moderate chronic ischemic change, with the largest lesion in the left periventricular region measuring 1.2 by 0.7 cm, FLAIR image . No areas of restricted diffusion to suggest acute ischemia or infarction. There is minimal mucosal thickening in the right maxillary sinus and sphenoid sinus. Reading Location: [facility] Active Medications Active Medications Active Medications: Current Medications Generic Name Dose Route Start Last Admin Trade Name Freq PRN Reason Stop Dose Admin Acetaminophen 650 mg 01/14/25 13:19 Acetaminophen 325 Mg Tablet PO Q6H PRN PRN Pain 1-10 Or Fever>100.7 Aspirin 81 mg 01/15/25 08:00 01/15/25 09:48 Aspirin 81 Mg Tab.Chew PO 81 mg BREAKFAST [place] Administration Atorvastatin Calcium 40 mg 01/14/25 22:00 01/14/25 21:38 Atorvastatin Calcium 40 Mg Tablet PO 40 mg QHS [place] Administration Calcium/Vitamin D 1 tablet 01/15/25 08:00 01/15/25 10:49 Calcium Carb/Vitamin D 1 Tablet Tablet PO 1 tablet DAILYCM [place] Administration Hydralazine HCl 5 mg 01/14/25 13:19 Hydralazine 20 Mg/Ml Vial IV 01/15/25 13:19 Q30M PRN maintain BP parameters with HR <60 Sodium Chloride 250 mls @ 15 mls/hr 01/14/25 13:22 IV .[id number] PRN Saline Flush Iopamidol 0 ml 01/14/25 09:00 01/15/25 09:48 Contrast Allergy Safety Check IV Not Given X1 [place] Labetalol HCl 10 - 20 mg 01/14/25 13:19 Labetalol 20 Mg/4 Ml Vial IV 01/15/25 13:19 Q10M PRN PRN maintain BP parameters with HR >/=60 Melatonin 3 mg 01/14/25 13:19 Melatonin 3 Mg Tablet PO QHS PRN PRN INSOMNIA Ondansetron HCl 4 mg 01/14/25 13:19 Ondansetron 4 Mg/2 Ml Vial IV Q8H PRN PRN NAUSEA/VOMITING Sodium Chloride 10 - 40 ml 01/14/25 13:22 01/14/25 21:38 0.9% Saline Lock 10 Ml Syringe IV 10 ml UD PRN Administration SALINE FLUSH NIHSS NIHSS Nursing Documentation NIHSS Nursing Documentation: NIHSS: Ischemic Stroke/TIA Start: 01/14/25 13:19 Text: For ICU Patients: NIH sroke scale at Status: Complete presentation and every 2 hours or with change in RN caregiver Freq: [id number] Protocol: Activity Type Activity Date Activity User E-sign Co-sign Detail Recorded Client Recorded Date Recorded By Document 01/14/25 18:00 KASHIF [id number] 01/14/25 18:01 KASHIF 01/14/25 18:00 NIH Stroke Scale [NIHSS] A score of 0 is normal or asymptomatic . Total possible score is 42. Inpatient: RN or Physician to activate a stroke alert for onset of new stroke symptoms or with NIHSS increase >/= 3 points. Following change in neurological status, NIHSS will be performed per physician order or more frequently PRN. -1a. Level of Consciousness 0 - Alert; keenly responsive -1b. LOC Questions 0 - Answers BOTH questions correctly -1c. LOC Commands 0 - Performs BOTH tasks correctly -2. Best Gaze 0 - Normal -3. Visual 0 - No visual loss -4. Facial Palsy 0 - Normal symmetrical movements -5a. Left Arm 0 - No drift; arm holds 90 ( or 45) degrees for full 10 seconds -5b. Right Arm 0 - No drift; arm holds 90 ( or 45) degrees for full 10 seconds -6a. Left Leg 0 - No drift; leg holds 30- degree position for full 5 seconds -6b. Right Leg 0 - No drift; leg holds 30- degree position for full 5 seconds -7. Limb Ataxia 0 - Absent -8. Sensory 0 - Normal; no sensory loss -9. Best Language 0 - No aphasia; normal -10. Dysarthria 0 - Normal -11. Extinction and Inattention 0 - No abnormality -Total 0 Query Text:A score of 0 is normal or asymptomatic. Total possible score is 42 . ED: Notify Physician for NIHSS increase by > / = 3 points. Inpatient: RN or Physician to activate a stroke alert for NIHSS increase of > / = 3 points. Coma Scale [Assess] -Eye Opening Spontaneous -Motor Obeys Commands -Verbal Oriented [Total] -Coma Scale Total 15
--- NOTE | 2025-01-15 12:17 | CASEMGMT ---
SW did not complete a PHQ9 as patient did not have a Stroke. Mirela STONE
--- NOTE | 2025-01-15 12:32 | DCINST_ITS ---
Discharge Instructions Diet Discharge Diet: No restrictions DC O2, CPAP, BIPAP needs Home O2 Discharge instructions: No Dressing / Incision Discharge Activity: No Restrictions Follow Up Care Test Results: Test results from this visit will be discussed in further detail at your follow- up appointment, if applicable. Discharge Plan Admission Admit Date/Time: 01/14/25 11:18 Primary Reason for Your Visit: Unsteadiness Attending Provider: Nehemias John Primary Care Provider: Justyn Penny Consulting Providers: Federico Stallworth; Rufus Chery; Grecia Urbano; Lola Waldron; Joann Duarte; Pipo Cueva; May Green; Ector Medina; Joshua Nayak; Ezio Laguna; Mine Kincaid; Isidro Barnett; Elba Gooden; Zora Nolasco; Chu Palm; You Harris; Brent Shah; Abdulaziz De Anda; Dionna Patel; Jenny Hernandez Discharge Orders/Prescriptions Prescriptions: Continued Centrum Silver Women 1 EACH tablet 1 ea PO DAILY Patient Comments: supplement calcium carbonate-vitamin D3 1 EACH tablet 1 ea PO DAILY Patient Comments: supplement diltiazem HCl 240 mg capsule,extended release 24hr 240 mg PO DAILY lisinopril 20 mg tablet 20 mg PO DAILY pravastatin 20 mg tablet 20 mg PO QHS Referrals / Follow Up: Justyn Penny MD [Primary Care Provider] - Disposition Disposition (needs filled in before D/C Order can be placed): Home, Self Care
--- NOTE | 2025-01-15 12:32 | PCM.DC.SUM ---
Providers Date of Admission: 01/14/25 Date of Discharge: 01/15/25 Primary Care Physician: Dr. Justyn Penny MD Consultations 01/14/25 13:19 Consult: Tele-Neurology Routine Consulting Provider: [facility] Reason for Consult: Acute Ischemic Stroke/TIA EMERGENT Consult: No Notified: Yes Date Notified: 01/14/25 Time Notified: 13:22 Method of Notification: Answering Service Nursing Unit Staff Notify [facility] of Tele-Neurology Consult: Yes Reason For Visit: STROKELIKE SYMPTOMS Diagnosis Discharge Diagnosis (1) Disequilibrium: Status: Acute Code(s): R42 - Dizziness and giddiness Medications at Discharge Home Medications calcium 600 mg (as carbonate)-vitamin D3 20 mcg (800 unit) tablet 1 ea PO DAILY 02/04/15 chgcqiwh-wiiv-pqqo 8 mg-folic 400 mcg-K 50 mcg-lutein 300 mcg tablet (Centrum Silver Women) 1 ea PO DAILY 02/04/15 diltiazem HCl 240 mg capsule,extended release 24 hr 240 mg PO DAILY 01/14/25 lisinopril 20 mg tablet 20 mg PO DAILY 01/14/25 pravastatin 20 mg tablet 20 mg PO QHS 01/14/25 Hospital Course Operations None Procedures EKG, Transthoracic echo and - (CTA head/neck, MRI brain) Summary of Care Provided Minutes Spent on Discharge: 35 Hospital Course: Patient is a 79-year-old female who presented to [facility] ED on 01/14/2025 with disequilibrium and difficulty with ambulation. Hospital course as noted below. Patient discharged home in stable condition on 01/15. 1. Disequilibrium and difficulty with ambulation ? Neurology followed. Presented with disequilibrium and difficulty with ambulation for 1 to 2 days. CTA head/neck unremarkable. MRI brain normal. Echo with no concerning findings. A1c and TSH normal. Lipid panel with good cholesterol control. Per neurology, symptoms most consistent with BPPV. Worked with therapy and symptoms much improved on hospital day 2. No need for aspirin or statin on discharge. Stable for discharge home on 01/15. 2. History of A-fib s/p Maze procedure and CHENTE clipping, hypertension, hyperlipidemia ? History of Maze procedure and CHENTE clipping back in 2006. Follows with outpatient cardiology and reports no recurrence of A-fib since then. Held home diltiazem and lisinopril for permissive hypertension while inpatient, okay to resume on discharge. Continue home statin. 3. Class I obesity ? BMI 34 on admit. Complicated hospital course, care and prognosis. Total clinical time spent by myself addressing the patient's medical issues, reviewing all the data, and collaborating with patient's care team: 35 minutes. Physical Exam Const alert, oriented x3 and no apparent distress Constitutional Narrative: Elderly female, class I obesity, energy improved from admission, sitting back comfortably in bed, conversing normally, in no acute distress. General Appearance: cooperative and comfortable HEENT normocephalic, head/scalp atraumatic, hearing grossly normal bilaterally, nasal mucous membranes and turbinates normal and moist oral mucous membranes Eyes PERRL, EOMs intact bilaterally and conjunctivae normal Neck full ROM Chest inspection of chest normal Resp normal respiratory effort, normal air movement, no use of accessory muscles and clear to auscultation bilaterally Cardio regular rate, regular rhythm, no murmurs and peripheral pulses 2+ throughout GI normal to inspection, nondistended, normoactive bowel sounds, soft to palpation, non-tender and non-distended Back/Spine normal ROM Extremity normal to inspection, full ROM and no pedal edema Skin no rashes or lesions noted Neuro oriented x3, CN's II-XII intact bilaterally, moves all extremities and no focal motor deficits Coordination / Balance: gqihch-hw-wavb test normal and srgx-si-wofd test normal Speech: speech normal Motor Exam: strength 5/5 throughout Psych mental status grossly normal Weight / BMI Weight Weight: 92.8 kg Body Mass Index (BMI) 34.0 ABG / Lab / Microbiology Data 01/15/25 06:22 01/15/25 06:22 Laboratory: Laboratory Results - last 24 hr 01/14/25 09:40: TSH 1.070 01/14/25 13:25: Troponin T Hi Sens 4Hr < 6 01/15/25 06:22: WBC 7.3, RBC 4.62, Hgb 14.0, Hct 41.9, MCV 90.7, MCH 30.3, MCHC 33.4, RDW Std Deviation 49.1 H, RDW Coeff of Leda 14.7 H, Plt Count 330, MPV 10.6, Sodium 142, Potassium 3.9, Chloride 108, Carbon Dioxide 24.3, Anion Gap 9, BUN 11, Creatinine 0.83, Estim Creat Clear Calc 62.89, Est GFR (MDRD) Non-Af 72, BUN/Creatinine Ratio 13.8, Glucose 97, Calcium 9.1, Triglycerides 49, Cholesterol 161, LDL Cholesterol, Calc 84, VLDL Cholesterol 10, HDL Cholesterol 67, Cholesterol/HDL Ratio 2.39 Radiography Diagnostic Testing: Radiology Impression Echocardiogram 01/14/25 11:21 Interpretation Summary Normal LV size. Left ventricular systolic function is normal. The left ventricular ejection fraction is 60 %. The left atrium is mildly enlarged. Ordering Physician: Nehemias John Performed By: Marcio Adam RCS Brain MRI 01/14/25 12:24 IMPRESSION: There is abnormal increased T2 and FLAIR signal in the deep white matter with moderate chronic ischemic change, with the largest lesion in the left periventricular region measuring 1.2 by 0.7 cm, FLAIR image . No areas of restricted diffusion to suggest acute ischemia or infarction. There is minimal mucosal thickening in the right maxillary sinus and sphenoid sinus. Reading Location: [facility]rero/[facility] Instructions DC O2, CPAP, BIPAP Needs Home O2 Discharge instructions: No Meaningful Use Info Meaningful Use Meaningful Use Diagnoses (Choose all that apply): None applicable Ischemic Stroke Statin Dosing Therapy Reference: STATIN DOSE THERAPY REFERENCE: * Patients > 75 years receive moderate or high dose statin therapy. * Patients 75 years or YOUNGER should receive HIGH intensity statin dose unless contraindicated. You will be required to document reason for non-treatment if statin daily dose does not meet guidelines. HIGH DOSE STATIN THERAPY DAILY Atorvastatin > than or = to 40 mg Rosuvastatin > than or = to 20 mg Amlodipine + Atorvastatin > than or = to 2.5/40 mg Ezetimibe + Simvastatin 10/80 mg Simvastatin 80mg Discharge Plan Admission Admit Date/Time: 01/14/25 11:18 Primary Reason for Your Visit: Unsteadiness Attending Provider: Nehemias John Primary Care Provider: Justyn Penny Consulting Providers: Federico Stallworth; Rufus Chery; Grecia Urbano; Lola Waldron; Joann Duarte; Pipo Cueva; May Green; Ector Medina; Joshua Nayak; Ezio Laguna; Mine Kincaid; Isidro Barnett; Elba Gooden; Zora Nolasco; Chu Palm; You Harris; Brent Shah; Abdulaziz De Anda; Dionna Patel; Jenny Hernandez Discharge Orders/Prescriptions Prescriptions: Continued Centrum Silver Women 1 EACH tablet 1 ea PO DAILY Patient Comments: supplement calcium carbonate-vitamin D3 1 EACH tablet 1 ea PO DAILY Patient Comments: supplement diltiazem HCl 240 mg capsule,extended release 24hr 240 mg PO DAILY lisinopril 20 mg tablet 20 mg PO DAILY pravastatin 20 mg tablet 20 mg PO QHS Referrals / Follow Up: Justyn Penny MD [Primary Care Provider] - Disposition Disposition (needs filled in before D/C Order can be placed): Home, Self Care Charges/Coding Visit Charges Inpatient E&M: 00803 Disch Hosp >30min
[2025-01-15 12:49] VITALS: BP 164/86; PULSE 78; RESP 16; TEMP 36.5; O2SAT 99
--- NOTE | 2025-01-15 13:39 | PHA.DC.MR.R ---
Pharmacy [place] Med Reconciliation Pharmacy Service has performed discharge medication reconciliation for this patient. The patient's discharge medication list was reviewed for discrepancies and discrepancies were resolved. Medications at Discharge Home Medications calcium 600 mg (as carbonate)-vitamin D3 20 mcg (800 unit) tablet 1 ea PO DAILY 02/04/15 xbicnrif-heac-ppkj 8 mg-folic 400 mcg-K 50 mcg-lutein 300 mcg tablet (Centrum Silver Women) 1 ea PO DAILY 02/04/15 diltiazem HCl 240 mg capsule,extended release 24 hr 240 mg PO DAILY 01/14/25 lisinopril 20 mg tablet 20 mg PO DAILY 01/14/25 pravastatin 20 mg tablet 20 mg PO QHS 01/14/25
--- NOTE | 2025-01-15 14:38 | CASEMGMT ---
Patient has order for discharge. Neurology recommending outpatient vestibular therapy. Script received. MIKA AGUIAR in to discuss needs at discharge. Patient prefers outpatient therapy at [facility]. Patient provided copy of script. MIKA AGUIAR sent referral to [facility] with request to call patient to schedule appointment. Patient had no further questions or concerns.
--- NOTE | 2025-01-15 15:38 | CHAPLAIN ---
Type of Pastoral Visit _x__ Initial Visit ___ Follow-up Visit ___ On-call Visit ___ General Patient Visit ___ Spiritual Assessment ___ Family Conference ___ Bereavement ___ Rapid Response ___ Code Blue ___ Other (describe below) Pastoral Care Referral From _x__ Patient ___ Family ___ Nurse ___ Physician ___ Core Assembly Supervisor ___ Property Specialist ___ Other (describe below) Sacrament/Intervention _x__ Active listening ___ Anointing ___ Holiness ___ Bereavement ___ Communion ___ Vanita exploration ___ ___ Life review ___ Prayer ___ Reconciliation ___ Sacrament of Sick _x__ Supportive presence ___ Wedding ___ Other (describe below) Pastoral Comments patient had some tests done and is expecting to leave the hospital yet today hopefully; pt has support, denies any worries or concerns
== END 2025-01-15 16:20 | disposition home or self-care (01) ==
LOC: ED 11:23 → PCU 11:32
PROVIDERS: Admitting Provider Hospitalist; Emergency Provider Emergency Medicine; PCP Internal Medicine; Visit Provider Hospitalist
DX: R42 Dizziness and giddiness (principal); I10 Essential (primary) hypertension; Z68.34 Body mass index [BMI] 34.0-34.9, adult; E78.5 Hyperlipidemia, unspecified; E66.811 Obesity, class 1; Z79.899 Other long term (current) drug therapy; Z86.79 Personal history of other diseases of the circulatory system; R11.0 Nausea
CPT/HCPCS: 36415; 70496; 70498; 70551; 80048; 80061; 81001; 83036; 84443; 84484; 85025; 85027; 92523; 92610; 93005; 93306; 94762; 96360; 96361; 97162; 97166; 99221; 99285; Q9967; A4216; G0378

== ENCOUNTER 2025-01-22 09:45 | Outpatient (RCR) | payer MEDICARE, OTHER, SELFPAY ==
--- NOTE | 2025-01-22 10:36 | HP.PTEVAL ---
Patient's Visit Information Visit Information Visit Information: JONA SMITH is a 79 year old F referred to Physical Therapy by Dr. Nehemias John DO with a diagnosis of Dizziness. Date of Evaluation: 01/22/25 Physical Therapist: Regis Piper, DPT, OCS, CSCS Visit Plan Frequency: 1x/Week Duration: 2-4 Weeks Plan: weekly x 2-4 as needed for positional check adn oculomotor if symptoms persist/return. \Taught lexie for HEP if needed with HO weekly as needed Subjective Subjective: One incident of dizzyness lasting a few days. Woke up in am and was lightheaded but not spinning, bumped into things. Walked like she was drunk. Came and went during the day. Ok at rest but movement of head made her lightheaded adn nausea. next day went to urgent care and went to ER. Did a stroke work up and everything was normal there. Diagnosed with BPPV. Sent home and continued mildly for a few days. Saw PCP and sent for PT. Said to [facility] but has not needed. Resolved last couple days. Now has been good sin Tuesday. Back to normal activities walking and driving. Done basics at home without issue. Sleep is good now. Silver Sneakers class at [employer] and will come tomorrow. Objective Objective: Walks into PT I. Trasnfers I, all looks normal. Feeling 100% better. Cervical AROm WFL and without pain, UE AROM WNL, strength 4-/5 UE elevation. Sensation UE WNL to gross light touch. - L HD + R HD for quick 8 sec lightheaded, hard to see nystagmus treated with R modified lexie and then much better. Balance/Special Test Scores Functional Gait Assessment Score: 29 % Disability: 3.3400 CATSIB Score (Max score 120 seconds): 120 Dizziness Score: 0 Goals Goal 1:: abolish dizziness for one weeek Goal Time Frame: 2-4 Weeks Goal 2:: Pt feel 100% back to normal for one week Goal Time Frame: 2-4 Weeks Rehabilitation Potential Physical Therapy Diagnosis: Some lightheadedness that limited funciton, likeely vestibular. Rehabilitation Potential: Good Anticipated Interventions Patient/Client Instruction: Educate patient on: Condition For the Purpose of:: To increase tolerance to activity/condition/position Comment: posotiional For the Purpose of:: To increase tolerance to activity/condition/position Text: Thank you for the opportunity to evaluate your patient. For Medicare and Medicare HMO plans, please review the plan of care and approve it. It will need to be FAXED BACK to us at [phone] for Medicare purposes. For Medicare only, by signing this I certify the plan of care. Please let me know if there are questions or concerns regarding this plan of care. Physician Signature: Date:
--- NOTE | 2025-01-29 12:24 | HP.PT.NRP ---
Patient Information Patient Information: JONA SMITH was seen in my office for initial evaluation on 01/22/25. The following Plan of Care was established for this patient: POC Established Initial Frequency: 1x/Week Initial Duration: 2-4 Weeks Anticipated Interventions Patient/Client Instruction: Educate patient on: Condition For the Purpose of:: To increase tolerance to activity/condition/position For the Purpose of:: To increase tolerance to activity/condition/position Last Seen Last Seen: This patient was last seen in our office 01/22/25. Pertinent comments regarding their Physical therapy will appear below: Pt seen and treated for positional vertigo and was to f/u a week later but cancelled as she was doing well without recurrence. I will discontinue from my care at this time. At this point I will be discontinuing this patient from physical therapy. I would be happy to see this patient again in the future if found appropriate by the physician. Thank you! Regis Piper, DPT, OCS, CSCS Balance/Gait/Functional tests Balance/Special Test Scores Functional Gait Assessment Score: 29 % Disability: 3.3400 CATSIB Score (Max score 120 seconds): 120 Dizziness Score: 0
== END 2025-01-22 19:00 | disposition home or self-care (01) ==
LOC: PT 09:45
PROVIDERS: PCP Internal Medicine; Referring Provider Hospitalist; Visit Provider Hospitalist
DX: R42 Dizziness and giddiness (principal)
CPT/HCPCS: 97161